=== PATIENT | female | born 1965 | race Caucasian/White ===

== ENCOUNTER 2023-11-06 13:32 | Day surgery (SDC) | payer OTHER ==
[2023-11-03 15:07] VITALS: BMI 24.4
[2023-11-06] MEDS ORDERED: fentaNYL PF 100 MCG/2 ML SYRINGE ONE (14:27)
[2023-11-06] MEDS ORDERED: PROPOFOL 40 ML ONE (14:27)
[2023-11-06] MEDS ORDERED: Midazolam HCl 2 mg/2 ml Vial ONE (14:27)
[2023-11-06] MEDS ORDERED: Lidocaine 1% PF 5 ML VIAL ONE (14:30)
[2023-11-06] MEDS ORDERED: Dexamethasone 20 MG/5 ML VIAL ONE (14:30)
[2023-11-06] MEDS ORDERED: Ondansetron PF 4 MG/2 ML Vial ONE (14:30)
[2023-11-06] MEDS ORDERED: Oxymetazoline HCl 0.05% (30 ML BOT) ONE (14:37)
[2023-11-06] MEDS ORDERED: PROPOFOL 20 ML ONE (15:21)
[2023-11-06] MEDS ORDERED: EPINEPHrine 1 MG/ML VIAL ONE ×2 (16:14→16:39)
[2023-11-06] MEDS ORDERED: Lidocaine 1% (PF) 30 ML VIAL ONE (16:14)
[2023-11-06] MEDS ORDERED: Bacitracin Zinc Ointment 30 gm TUBE ONE (16:14)
[2023-11-06] MEDS ORDERED: Albuterol HFA (OR) 200 PUFF INH ONE (16:30)
[2023-11-06] MEDS ORDERED: PHENYLEPHRINE-NS 100 MCG/ML 10 ML SYRINGE ONE (16:34)
[2023-11-06] MEDS ORDERED: fentaNYL 50 mcg/mL 1 mL Vial ONE (17:39)
[2023-11-06] MEDS ORDERED: Hydrocodone-Acetamin 15 ML UDCUP ONE (18:05)
== END 2023-11-06 18:55 | disposition home or self-care (01) ==
LOC: SDC 13:32
PROVIDERS: ATTEND Specialist
PROC: 09BM3ZZ Excision of Nasal Septum, Percutaneous Approach (ICD-10-PCS; principal; 2023-11-06)
PROC: 099R3ZZ Drainage of Left Maxillary Sinus, Percutaneous Approach (ICD-10-PCS; principal; 2023-11-06)
PROC: 099Q3ZZ Drainage of Right Maxillary Sinus, Percutaneous Approach (ICD-10-PCS; principal; 2023-11-06)
PROC: 09BL3ZZ Excision of Nasal Turbinate, Percutaneous Approach (ICD-10-PCS; principal; 2023-11-06)
DX: J32.4 Chronic pansinusitis (principal); J34.2 Deviated nasal septum; J34.3 Hypertrophy of nasal turbinates; J30.1 Allergic rhinitis due to pollen; J30.81 Allergic rhinitis due to animal (cat) (dog) hair and dander; J30.89 Other allergic rhinitis
CPT/HCPCS: J0171; J1100; J2001; J2250; J2405; J2704; J3010